=== PATIENT | male | born 1940 | race Caucasian/White ===

== ENCOUNTER 2016-04-16 12:23 | Day surgery (SDC) | payer OTHER ==
[~2016-04-16] VITALS: Ht 172.7 cm; Wt 88.9 kg
[~2016-04-16 12:23] MED LIST: ASPIR 8181 M1 PO; ASPIR-LOW81 MG PO; ATORVASTATIN CA80 MG PO; AVODART0.5 MG PO; COUMADIN,JANTOVE2 MG PO; FUROSEMIDE40 MG PO; GLIMEPIRIDE4 MG PO; GLUCOPHAGE500 MG PO; GLYBURIDE5 MG PO; K-DUR20 MEQ PO; KLOR-CON M2020 MEQ PO; LASIX40 MG PO; LISINOPRIL10 MG PO; LOPRESSOR100 MG PO; LOW-DOSE ASPIRI81 MG PO; METOPROLOL TAR100 MG PO; NITROQUICK0.4 MG PO; NITROSTAT0.4 MG SL; POTASSIMIN75 MG PO; SIMVASTATIN80 MG PO; TAMSULOSIN HCL0.4 MG PO; WARFARIN SODIUM4 MG PO; ZESTRIL,PRINIVI20 MG PO; ZOCOR80 MG PO
== END 2016-04-16 15:30 | disposition home or self-care (01) ==
LOC: CATH 12:23
DX: Z45.02 Encounter for adjustment and management of automatic implantable cardiac defibrillator (principal); I25.5 Ischemic cardiomyopathy; I48.91 Unspecified atrial fibrillation; I25.2 Old myocardial infarction; I25.10 Atherosclerotic heart disease of native coronary artery without angina pectoris; Z95.1 Presence of aortocoronary bypass graft; I10 Essential (primary) hypertension; I73.9 Peripheral vascular disease, unspecified; J44.9 Chronic obstructive pulmonary disease, unspecified; E78.2 Mixed hyperlipidemia; E11.9 Type 2 diabetes mellitus without complications; Z87.891 Personal history of nicotine dependence; Z79.01 Long term (current) use of anticoagulants; Z79.82 Long term (current) use of aspirin
CPT/HCPCS: C1882; J0690; J1200; J2250; J3010; S0020

== ENCOUNTER 2016-10-06 11:00 | Emergency (ER) | payer OTHER ==
[~2016-10-06] VITALS: Ht 172.7 cm; Wt 84.1 kg
[2016-10-06] MEDS ORDERED: NORCO 5/3251 TABLET PO (14:00)
[2016-10-06] MEDS ORDERED: KEFLEX500 MG PO (14:00)
[2016-10-06 14:08] VITALS: BP 96/65
== END 2016-10-06 14:10 | disposition home or self-care (01) ==
LOC: EME 11:00
DX: S61.211A Laceration without foreign body of left index finger without damage to nail, initial encounter (principal); W31.2XXA Contact with powered woodworking and forming machines, initial encounter; E11.9 Type 2 diabetes mellitus without complications; Z79.84 Long term (current) use of oral hypoglycemic drugs; Z23 Encounter for immunization; Z95.1 Presence of aortocoronary bypass graft
CPT/HCPCS: 99281; 99283; S0020

== ENCOUNTER 2017-01-09 08:10 | Emergency (ER) | payer OTHER ==
[~2017-01-09] VITALS: Ht 172.7 cm; Wt 84.9 kg
[~2017-01-09 08:10] MED LIST changes: +KEFLEX500 MG PO; +NORCO 5/3251 TABLET PO
[2017-01-09 08:59] LABS: BASOPHIL COUNT 0.1 K/uL (0-0.1); EOSINOPHIL (%) 3.8 % (0-5); EOSINOPHIL COUNT 0.3 K/uL (0-0.3); HEMATOCRIT 41.3 % (38.0-50.0); IMMATURE GRANULOCYTE (%) 0.1 % (0.0-0.7); INSTRUMENT ABS NEUTROPHIL CT 5.1 K/uL; LYMPHOCYTE COUNT 1.6 K/uL (1.0-2.8); MCH 29.6 PG (29.0-34.0); MCHC 33.4 G/DL (30.0-36.0); MCV 88.6 FL (86-99); MONOCYTE (%) 10.3 % (3-12); MONOCYTE COUNT 0.8 K/uL (0-0.8); NEUTROPHIL (%) 64.3 % (45-76); NEUTROPHIL COUNT 5.1 K/uL (1.8-6.4); PLATELET COUNT 165 K/uL (156-360); RBC DIS.WIDTH-CV 15.3 % (11.8-14.6); RBC DIS.WIDTH-SD 49.9 % (39-53); RED BLOOD COUNT 4.66 M/uL (4.00-5.50)
[2017-01-09 09:06] LABS: INTER. NORMALIZED RATIO 3.3
[2017-01-09 09:07] LABS: CHLORIDE 106 mEq/L (99-109); POTASSIUM 4.8 mEq/L (3.7-5.4); SODIUM 139 mEq/L (136-147)
[2017-01-09 09:08] LABS: GLUCOSE 175 mg/dL (70-99)
[2017-01-09 09:10] LABS: ANION GAP 11 MEQ/L (2-14)
[2017-01-09 09:12] LABS: GFR ESTIMATE (CALCULATED) 45 mL/min/
[2017-01-09 09:13] LABS: UREA NITROGEN (BUN) 22 mg/dL (9-23)
[2017-01-09] MEDS ORDERED: AUGMENTIN875 MG PO (09:44)
[2017-01-09 09:53] VITALS: BP 123/86
== END 2017-01-09 09:54 | disposition home or self-care (01) ==
LOC: EME 08:10
PROVIDERS: Emergency Medicine
DX: H92.22 Otorrhagia, left ear (principal); H66.92 Otitis media, unspecified, left ear; E11.9 Type 2 diabetes mellitus without complications; H91.92 Unspecified hearing loss, left ear; F17.200 Nicotine dependence, unspecified, uncomplicated; Z95.810 Presence of automatic (implantable) cardiac defibrillator; Z79.84 Long term (current) use of oral hypoglycemic drugs; Z79.01 Long term (current) use of anticoagulants; Z79.82 Long term (current) use of aspirin; Z98.890 Other specified postprocedural states; Z88.8 Allergy status to other drugs, medicaments and biological substances
CPT/HCPCS: 70450; 80048; 85025; 85610; 99281; 99283

== ENCOUNTER 2017-08-10 09:50 | Inpatient (IN) | payer OTHER ==
[~2017-08-10] VITALS: Ht 172.7 cm; Wt 82.8 kg
[~2017-08-10 09:50] MED LIST changes: +AUGMENTIN875 MG PO
[2017-08-10 10:46] LABS: HEMATOCRIT 40.7 % (38.0-50.0); HEMOGLOBIN 13.7 G/DL (12.5-16.6); MCH 29.6 PG (29.0-34.0); MCHC 33.7 G/DL (30.0-36.0); MCV 87.9 FL (86-99); PLATELET COUNT 136 K/uL (156-360); RBC DIS.WIDTH-CV 15.2 % (11.8-14.6); RBC DIS.WIDTH-SD 49.1 % (39-53); RED BLOOD COUNT 4.63 M/uL (4.00-5.50); WHITE BLOOD COUNT 7.1 K/uL (4.1-10.2)
[2017-08-10 10:55] LABS: CHLORIDE 105 mEq/L (99-109); SODIUM 139 mEq/L (136-147)
[2017-08-10 10:57] LABS: GLUCOSE 71 mg/dL (70-99)
[2017-08-10 11:01] LABS: CREATININE 1.6 mg/dL (0.6-1.3); GFR ESTIMATE (CALCULATED) 45 mL/min/ (58.99-99999)
[2017-08-10 11:02] LABS: UREA NITROGEN (BUN) 34 mg/dL (9-23)
[2017-08-10 11:07] LABS: TROP-I INTERPRETATION NEGATIVE; TROPONIN-I 0.03 ng/mL (0.0-0.30)
[2017-08-10 11:34] LABS: ABS NEUTROPHIL COUNT 4.3; ANISOCYTOSIS 1+; ATYPICAL LYMPHOCYTE 3.5 %; BAND NEUTROPHILS 21.7 % (0-8.0); BASOPHILS 0.9 %; EOSINOPHIL ABS CT 0; HEMATOLOGY COMMENT 1 SN; LYMPHOCYTES 18.2 % (15.0-45.0); METAMYELOCYTES 0.9 %; MICROCYTOSIS 1+; MONOCYTES 16.5 % (0-9.0); PLAT.SUFFICIENCY DECREASED; POLYCHROMASIA 1+; SEG.NEUTROPHILS 38.3 % (46.0-76.0); TOX.VACUOLIZATION 1+; TOXIC GRANULATION 2+
[2017-08-10 13:11] LABS: PCO2 34 mm Hg (35-45); PO2 63 mm Hg (80-100); pH 7.44 (7.35-7.45)
[2017-08-10 13:12] LABS: BASE EXCESS -0.5 mEq/L (-3 to +3); BICARBONATE 23.1 mEq/L (22-26); CARBOXY HGB 2 % (0-5); COMMENTS - BLOOD GASES A+C+; DEVICE NC; METHEMOGLOBIN 0.9 % (0-1.5); O2 FLOW 5 L/MIN; SITE LR; TOTAL RESP RATE 28 resp/min
[2017-08-10 13:44] VITALS: BP 128/62
[2017-08-10] MEDS ORDERED: NOVOLIN,HU100 UNITS/ SQ ×2 (14:03)
[2017-08-10 14:41] LABS: PTT 41.8 SEC (25-37)
[2017-08-10 14:46] LABS: INTER. NORMALIZED RATIO 4.6
[2017-08-10 16:16] VITALS: BP 116/59
[2017-08-11 00:02] VITALS: BP 99/59
[2017-08-11 06:03] LABS: HEMATOCRIT 39.2 % (38.0-50.0); HEMOGLOBIN 13.1 G/DL (12.5-16.6); MCHC 33.4 G/DL (30.0-36.0); MCV 86.7 FL (86-99); PLATELET COUNT 144 K/uL (156-360); RBC DIS.WIDTH-CV 15.1 % (11.8-14.6); RBC DIS.WIDTH-SD 48.1 % (39-53); RED BLOOD COUNT 4.52 M/uL (4.00-5.50); WHITE BLOOD COUNT 7.6 K/uL (4.1-10.2)
[2017-08-11 06:26] LABS: CHLORIDE 102 MEQ/L (99-109); CREATININE 1.7 MG/DL (0.6-1.3); GFR ESTIMATE (CALCULATED) 42 mL/min/ (58.99-99999); POTASSIUM 4.7 MEQ/L (3.7-5.4); SODIUM 135 MEQ/L (136-147); UREA NITROGEN (BUN) 44 mg/dL (9-23)
[2017-08-11 06:28] LABS: GLUCOSE 296 mg/dL (70-99)
[2017-08-11 06:35] LABS: INTER. NORMALIZED RATIO 5.5
[2017-08-11 08:16] VITALS: BP 101/70
[2017-08-11 08:18] LABS: TROP-I INTERPRETATION NEGATIVE; TROPONIN-I 0.02 ng/mL (0.0-0.30)
[2017-08-11 14:17] LABS: TROP-I INTERPRETATION NEGATIVE; TROPONIN-I 0.02 ng/mL (0.0-0.30)
[2017-08-11 16:11] VITALS: BP 103/60
[2017-08-11 23:58] VITALS: BP 106/61
[2017-08-12 06:42] LABS: HEMATOCRIT 39.3 % (38.0-50.0); HEMOGLOBIN 13.3 G/DL (12.5-16.6); MCH 29.1 PG (29.0-34.0); MCHC 33.8 G/DL (30.0-36.0); PLATELET COUNT 187 K/uL (156-360); RBC DIS.WIDTH-CV 14.8 % (11.8-14.6); RED BLOOD COUNT 4.57 M/uL (4.00-5.50)
[2017-08-12 07:02] LABS: ALBUMIN 3.4 G/DL (3.2-4.8); ALKALINE PHOSPHATASE 60 IU/L (3-129); ALT (GPT) 27 IU/L (3-49); AST (GOT) 38 IU/L (2-34); CHLORIDE 98 MEQ/L (99-109); CREATININE 1.4 MG/DL (0.6-1.3); GFR ESTIMATE (CALCULATED) 52 mL/min/ (58.99-99999); GLUCOSE 301 mg/dL (70-99); POTASSIUM 4.9 MEQ/L (3.7-5.4); SODIUM 132 MEQ/L (136-147); TOTAL BILIRUBIN 0.5 MG/DL (0.0-1.0); TOTAL PROTEIN 6.3 G/DL (6.4-8.3); UREA NITROGEN (BUN) 60 mg/dL (9-23)
[2017-08-12 07:14] LABS: INTER. NORMALIZED RATIO 5.9
[2017-08-12 07:47] VITALS: BP 110/67
[2017-08-12 07:48] LABS: ABS NEUTROPHIL COUNT 10.7; BAND NEUTROPHILS 10.1 % (0-8.0); EOSINOPHIL ABS CT 0; LYMPHOCYTES 6.4 % (15.0-45.0); SMUDGE CELLS 3.7
[2017-08-12 07:56] LABS: APPEARANCE CLEAR ((CLEAR)); BILIRUBIN NEGATIVE; BLOOD SMALL; COLOR YELLOW ((YELLOW)); GLUCOSE (STRIP) >=500; KETONES NEGATIVE; LEUKOCYTES NEGATIVE; NITRITE NEGATIVE; PROTEIN (STRIP) NEGATIVE; SPECIFIC GRAVITY 1.012 (1.000-1.030); UROBILINOGEN 0.2 MG/DL (0.2-1.0)
[2017-08-12 08:11] LABS: MONOCYTES 4.6 % (0-9.0); SEG.NEUTROPHILS 78.9 % (46.0-76.0)
[2017-08-12 08:16] LABS: BACTERIA NONE SEEN /HPF; EPITHELIAL CELLS RARE /HPF; HYALINE CASTS 0-5 /LPF; MUCUS NONE SEEN /LPF; RED BLOOD CELLS 0-5 /HPF (0-5); UCUL ADDED? NO; WHITE BLOOD CELLS 0-5 /HPF (0-5)
[2017-08-12 15:36] VITALS: BP 113/76
[2017-08-13 00:26] VITALS: BP 121/58
[2017-08-13 06:36] LABS: BASOPHIL (%) 0.7 % (0-1); BASOPHIL COUNT 0.1 K/uL (0-0.1); EOSINOPHIL (%) 0 % (0-5); HEMATOCRIT 41.3 % (38.0-50.0); HEMOGLOBIN 13.7 G/DL (12.5-16.6); IMMATURE GRANULOCYTE (%) 2.8 % (0.0-0.7); LYMPHOCYTE (%) 5.5 % (15-42); LYMPHOCYTE COUNT 0.9 K/uL (1.0-2.8); MCH 28.5 PG (29.0-34.0); MCHC 33.2 G/DL (30.0-36.0); MONOCYTE (%) 8.2 % (3-12); MONOCYTE COUNT 1.3 K/uL (0-0.8); NEUTROPHIL (%) 82.8 % (45-76); NRBC (%) 0.2 /100 WBC (0-0); PLATELET COUNT 233 K/uL (156-360); RBC DIS.WIDTH-CV 14.9 % (11.8-14.6); RBC DIS.WIDTH-SD 47.1 % (39-53); WHITE BLOOD COUNT 15.7 K/uL (4.1-10.2)
[2017-08-13 06:56] LABS: INTER. NORMALIZED RATIO 4.3
[2017-08-13 07:03] LABS: ALBUMIN 3.7 G/DL (3.2-4.8); ALKALINE PHOSPHATASE 63 IU/L (3-129); AST (GOT) 48 IU/L (2-34); CHLORIDE 100 MEQ/L (99-109); CREATININE 1.4 MG/DL (0.6-1.3); GFR ESTIMATE (CALCULATED) 52 mL/min/ (58.99-99999); GLUCOSE 248 mg/dL (70-99); POTASSIUM 5.1 MEQ/L (3.7-5.4); SODIUM 134 MEQ/L (136-147); TOTAL BILIRUBIN 0.5 MG/DL (0.0-1.0); TOTAL PROTEIN 6.8 G/DL (6.4-8.3); UREA NITROGEN (BUN) 54 mg/dL (9-23)
[2017-08-13 07:04] LABS: ALT (GPT) 56 IU/L (3-49)
[2017-08-13 08:10] VITALS: BP 110/75
[2017-08-13 11:40] VITALS: BP 120/73
[2017-08-13 15:34] VITALS: BP 120/77
[2017-08-13 19:53] VITALS: BP 122/76
[2017-08-13 23:52] VITALS: BP 124/73
[2017-08-14 04:22] VITALS: BP 104/51
[2017-08-14 07:00] LABS: HEMATOCRIT 40.6 % (38.0-50.0); HEMOGLOBIN 13.7 G/DL (12.5-16.6); MCHC 33.7 G/DL (30.0-36.0); MCV 85.8 FL (86-99); NRBC (%) 0.1 /100 WBC (0-0); PLATELET COUNT 234 K/uL (156-360); RBC DIS.WIDTH-SD 47.8 % (39-53); RED BLOOD COUNT 4.73 M/uL (4.00-5.50); WHITE BLOOD COUNT 18.5 K/uL (4.1-10.2)
[2017-08-14 07:11] LABS: INTER. NORMALIZED RATIO 2.7
[2017-08-14 07:28] LABS: ALBUMIN 3.6 G/DL (3.2-4.8); ALKALINE PHOSPHATASE 71 IU/L (3-129); ALT (GPT) 52 IU/L (3-49); AST (GOT) 34 IU/L (2-34); CHLORIDE 102 MEQ/L (99-109); CREATININE 1.1 MG/DL (0.6-1.3); GFR ESTIMATE (CALCULATED) > 59 mL/min/ (58.99-99999); POTASSIUM 4.7 MEQ/L (3.7-5.4); SODIUM 137 MEQ/L (136-147); TOTAL PROTEIN 6.5 G/DL (6.4-8.3); UREA NITROGEN (BUN) 45 mg/dL (9-23)
[2017-08-14 07:29] LABS: GLUCOSE 110 mg/dL (70-99); TOTAL BILIRUBIN 0.7 MG/DL (0.0-1.0)
[2017-08-14 07:38] LABS: ABS NEUTROPHIL COUNT 13.7; ANISOCYTOSIS 1+; BAND NEUTROPHILS 4.3 % (0-8.0); EOSINOPHIL ABS CT 0; LYMPHOCYTES 9.6 % (15.0-45.0); METAMYELOCYTES 4.3 %; MONOCYTES 9.6 % (0-9.0); MYELOCYTES 2.6 %; PLAT.SUFFICIENCY ADEQUATE; SEG.NEUTROPHILS 69.6 % (46.0-76.0); TOXIC GRANULATION 1+
[2017-08-14 09:00] VITALS: BP 113/64
[2017-08-14 11:56] VITALS: BP 109/69
[2017-08-14] MEDS ORDERED: PREDNISONE10 MG PO (12:14)
[2017-08-14] MEDS ORDERED: AMOX TR-K CLV1 EAC4 PO (12:14)
[2017-08-14] MEDS ORDERED: SPIRIVA RESPIMAT4 GM IH (12:14)
[2017-08-14] MEDS ORDERED: LEVEMIR100 UNIT/2 SC (12:14)
[2017-08-14] MEDS ORDERED: DULERA 100 MCG/13 GM IH (12:14)
[2017-08-14] MEDS ORDERED: VENTOLIN HFA18 GM IH (12:15)
== END 2017-08-14 14:49 | disposition home health service (06) | DRG 291 ==
LOC: EME 09:50 → EDOF 12:11 → 2EAST 12:11 → ENRESERV 12:15 → 2EAST 13:42
PROVIDERS: Emergency Medicine; Hospitalist; Internal Medicine; Physician Assistant
DX: I13.0 Hypertensive heart and chronic kidney disease with heart failure and stage 1 through stage 4 chronic kidney disease, or unspecified chronic kidney disease (principal); J44.1 Chronic obstructive pulmonary disease with (acute) exacerbation; I50.23 Acute on chronic systolic (congestive) heart failure; I48.2 Chronic atrial fibrillation; N18.3 Chronic kidney disease, stage 3 (moderate); E11.22 Type 2 diabetes mellitus with diabetic chronic kidney disease; R09.02 Hypoxemia; E78.5 Hyperlipidemia, unspecified; I25.10 Atherosclerotic heart disease of native coronary artery without angina pectoris; D69.6 Thrombocytopenia, unspecified; E11.51 Type 2 diabetes mellitus with diabetic peripheral angiopathy without gangrene; J06.9 Acute upper respiratory infection, unspecified; F32.9 Major depressive disorder, single episode, unspecified; Z79.84 Long term (current) use of oral hypoglycemic drugs; Z95.0 Presence of cardiac pacemaker; I25.2 Old myocardial infarction; Z95.1 Presence of aortocoronary bypass graft; Z87.891 Personal history of nicotine dependence; Z85.820 Personal history of malignant melanoma of skin; Z83.3 Family history of diabetes mellitus; Z79.01 Long term (current) use of anticoagulants; Z79.82 Long term (current) use of aspirin; Z79.899 Other long term (current) drug therapy
CPT/HCPCS: 36600; 71045; 71046; 80048; 80053; 81003; 82803; 82948; 83036; 83880; 84484; 85025; 85027; 85610; 85730; 87040; 87070; 87205; 87449; 93005; 93306; 94640; 94664; 94799; 99281; 99285; J0696; J1815; J2920; J2930; J7512